=== PATIENT | female | born 1965 | race Caucasian/White ===

== ENCOUNTER → 2018-01-23 10:53 | Outpatient (CLI) | payer BC, SELFPAY ==
--- NOTE | 2018-01-23 09:00 | TOBX_PTH ---
PATIENT: BALDO PORRAS [facility]: [facility] U#:[id number] AGE/SX: 59/F ROOM: RE01/23/[address]: Dr. Moody Winters DDS : 1965 BED: DIS: SPEC #: [id number] RECD: 01/23/18 10:31 STATUS: ANASTACIO HIREN #: [id number] ELLA: 01/23/18 09:[address]: Moody Winters DEPT: SURGICAL PATHOLOGY RECD BY: Gunner Awad Tissues: Tongue, NOS Procedures: Special Stain Group I Surgery Specimen Level IV GMS Stain (control) HEADER OPERATION: Tongue biopsy PRE-OP DIAGNOSIS: Several month history for painful growth, doubtful for malignancy TISSUE SUBMITTED: Dorsal tongue biopsy MICROSCOPIC DIAGNOSIS Dorsal tongue, biopsy: Squamous mucosa with verrucous changes and epithelial hyperplasia, suggestive of verruca vulgaris. Superficial bacterial colonization. Special stain for fungi is negative for organisms; matched control is appropriate. Negative for malignancy. SJ:anahi 01/24/18 MICROSCOPIC DESCRIPTION Slides are reviewed. GROSS DESCRIPTION Received in fixative is one container labeled with the patient's name and designated tongue. The specimen consists of a piece of mccurdy-white soft tissue measuring 0.3 x 0.3 x 0.1 cm. The specimen is totally submitted in one cassette. / MIKE:anahi 01/23/18 TC:5 CPT: 28136, 96148
== END ==
PROVIDERS: Visit Provider Dentist Oral and Maxillofacial Surgery
DX: K14.9 Disease of tongue, unspecified (principal)
CPT/HCPCS: 88305; 88312

== ENCOUNTER 2023-12-25 17:00 | Outpatient (RCR) | payer OTHER, SELFPAY ==
--- NOTE | 2023-11-17 10:48 | HP.OTEVAL_ITS ---
Patient's Visit Information Visit Information Visit Information: BALDO PORRAS is a 57 year old F, referred to Occupational Therapy by Dr. Lizandro Moon MD, with a diagnosis of right lateral epicondylitis/ radial tunnel syndrome. Date of Evaluation: 11/15/23 Occupational Therapist: Tiarra Bashir, SONA/Kathleen, CHT Subjective Subjective: This 57 year old female was seen for OT Eval with dx of right lateral epi, and radial tunnel. pt states pain has come and gone for about 8 weeks or longer- states really was painful when she went to swing a golf club- pt works at [employer] and has made some adj. to decrease stress on elbow positions. Pt is on medication and has decreased her pain by 50% still has pain with IADLs and ADLs. Pain right elbow pain: Current Pain Intensity: 3 Pain Intensity Range: 4 ROM ROM Comments: pt demo with full ROM Strength Drug Safety Specialist: right 45 with pain 45# Lateral Pinch: right 12# left 12# Tripod Pinch: right 12# left 12# Strength Comments: right with elbow straight 20# with pain left 55# Sensation Sensation Comments: denies Special Tests Lat Epiconylitis - as named: positive right Quick DASH-Disab of Arm,Shoulder& Hand Quick DASH Score: 37.5000 Goals Goal:: pt will demo a increase in right pasteurizer strength by 15# to increase pts ind. with ADLs by d.c Goal:: pt will report pain no greater than 2/10 with use of right UE with ADLs and sports tasks by d/c Goal:: pt will demo understanding of using lateral epi precautions, and ergo lift to limit stress on tendon/lig. by d.c Goal:: pt will demo understanding of using brace 80% if the time to decrease stress on extensor mech. to allow for healing by end of 2nd session. Rehabilitation General Assessment: pt demo with symptoms of positive right lateral epi. limiting pts IND with ADls, IADls and work tasks. pt would benefit from skilled OT services 1-2x week for 4 weeks to return pt to her PLOF. Today therapist ed. pt on lateral epi dx. bracing ( wrist cock-up and counterforce tennis elbow brace), protective phyllis. to avoid reaching with palm down for items and initiation of stretch and home program of friction massage to increase circulation and healing. pt demo understanding and agrees to POC. Rehabilitation Potential: Excellent Anticipated Interventions Anticipated Interventions: Strengthening, Triggerpoint Release, Modalities, Orthoses, Joint Protection/Energy Conservation, Ergonomic Education, Education re assistive Equipment, Education re Diagnosis and Home Program Visit Plan Frequency: 1-2x /Week Duration: 4-6 Weeks General Plan: wrist brace use with heavy work and sleeping tennis elbow brace with work and heavy work tasks/sports TEXT: Thank you for the opportunity to evaluate your patient. For Medicare and Medicare HMO plans, please review the plan of care and approve it. It will need to be FAXED BACK to us at [phone] for Medicare purposes. Please let me know if there are questions or concerns regarding this plan of care. Physician Signature: Date:
--- NOTE | 2023-12-25 18:00 | HP.OTDCSUM_ITS ---
Discharge Summary D/C Summary: It has been my pleasure to treat BALDO PORRAS under orders from Dr. Lizandro Moon MD, for the diagnosis of right lateral epicondylitis/ radial tunnel syndrome for a total of 5 visit(s). Please see the following information for a summary of their discharge status. Overall Improvement % Improvement: 70 Goals Patient Goals: Decrease Pain, Use Hand/Wrist/Arm Normally Again and Be More Independent in ADLS Goal:: pt will demo a increase in right housing and residence life director strength by 15# to increase pts ind. with ADLs by d.c progressing Goal:: pt will report pain no greater than 2/10 with use of right UE with ADLs and sports tasks by d/c goal met Goal:: pt will demo understanding of using lateral epi precautions, and ergo lift to limit stress on tendon/lig. by d.c - goal met Goal:: pt will demo understanding of using brace 80% if the time to decrease stress on extensor mech. to allow for healing by end of 2nd session. goal met Plan Plan: continue per POC with HEP, suggesting to order red flex bar to perform Marco Twists and soft tissue work at home. Continue with soft tissue and heat with eccentric exercises. D/C Information Discharge Comments: Pt was seen for right lateral epicondylitis. pt has made good gains in understanding dx and protrective phyllis. to prevent further injury. pts pain has decreased. pt is ready to cont. with HEP of eccentric ex. isometric shoulder stabilization and along with change in exercise routine. Pt has met OT goals and is d.c at this time with HEP . pt agrees to D.C. d/c sentence: If there are questions or concerns regarding this patient's occupational therapy, please fell free to call me at [phone]. Thank you for the referral of this patient. Sincerely, Tiarra Bashir, OTR/L, CHT
== END 2023-12-25 19:00 | disposition home or self-care (01) ==
LOC: OT 17:00
PROVIDERS: PCP Nurse Practitioner Primary Care; Referring Provider Orthopaedic Surgery; Visit Provider Orthopaedic Surgery
DX: G56.31 Lesion of radial nerve, right upper limb (principal); M77.11 Lateral epicondylitis, right elbow
CPT/HCPCS: 97035; 97110; 97140; 97166; 97530

== ENCOUNTER 2024-11-11 08:40 | Emergency (ER) | payer OTHER, SELFPAY ==
[2024-11-11 08:40] VITALS: BP 182/102; PULSE 64; RESP 14; TEMP 36.6; O2SAT 99; BMI 21.8
--- NOTE | 2024-11-11 08:49 | EDS_ITS ---
HPI History of Present Illness Chief Complaint: Headache Narrative Narrative: Chief complaint and HPI: Migraine. 58-year-old female with past medical history of migraines presents for evaluation of migraine. Patient follows with Dr. Faustin which is her neurologist. She recently had her abortive medication changed to a triptan. Patient states she woke up with a migraine this morning in which she took her triptan. However she states that the triptan did not improve the migraine which is why she presents. Patient states this feels like her typical migraines. Endorses nausea and photophobia. Denies any weakness or neurological deficit. Denies any trauma, fever, chills. Review of systems: See HPI Medications: As listed on the chart Allergies: As listed on the chart PFSH: Per chart Vital signs: As listed on the chart. Reviewed. Physical exam: Gen: A&O x3, NAD but lying in a dark room Head: Normocephalic, atraumatic Eyes: No sclera icterus, conjunctiva clear, PERRL, EOMI ENT: Moist mucous membranes Neck: Trachea midline, No JVD, full range of motion CV: RRR, no murmurs Resp: Lungs CTA BL, no w/r/c Musc: Full ROM, no deformity Skin: Warm, dry Neuro: Alert, oriented, grossly intact, sensation intact Psych: Cooperative, appropriate mood and affect [facility] Home Medications ?Medication ?Instructions ?Recorded ?Last Taken ?Type escitalopram oxalate 20 mg tablet 20 mg PO DAILY 04/28 Unknown History (Lexapro) rizatriptan 10 mg tablet 10 mg PO .X1 PRN 04/28/13 Un known History Allergy/AdvReac Type Severity Reaction Status Date / Time No Known Allergies Allergy Verified 11/11/24 08:41 Social History Smoking Status: Never smoker EXAM Physical Exam Const Vital Signs: 11/11/24 08:40 11/11/24 09:44 Temperature 98 F Temperature Source Temporal Pulse Rate 64 Respiratory Rate 14 Blood Pressure 182/102 H 151/87 H Blood Pressure Mean 128 108 Pulse Ox 99 Oxygen Delivery Method Room Air MDM MDM MDM Narrative Medical decision making narrative: 58-year-old female with past medical history of migraines presents for evaluation of migraine. Associated symptom with headache is nausea and photophobia. Patient states this feels like her typical migraine. Differential diagnosis includes but is not limited to migraine, tension headache. Not consistent with SAH. Do not think any imaging or laboratory workup is needed at this time. Patient's symptoms will be treated with migraine cocktail and we will reevaluate. On reevaluation, patient's headache has improved. Originally was a 8/10 now a 4 /10. Patient has not had any emesis here in the emergency department. Her blood pressure is improved with her pain. Patient stable to discharge home. She was educated to continue her triptans as prescribed. Will give Zofran as needed for nausea and vomiting. Return back to the ED if symptoms change or worsen. Impression: 1. Migraine headache 2. History of migraines Discharge Plan Triage Chief Complaint: Headache ED Provider: Nate West Dx/Rx/DC Orders Prescriptions: No Action rizatriptan 10 MG tablet 10 mg PO .X1 PRN escitalopram oxalate [Lexapro] 20 MG tablet 20 mg PO DAILY Primary Care Provider: Cammie Garcia NP Referrals: Cammie Garcia NP, BANK RECONCILIATOR-C [Primary Care Provider] - Print Language: Taiwanese
[2024-11-11] MEDS: 0.9% Normal Saline (1000mL) 1,000 ML 1000 ML IV (08:55)
[2024-11-11] MEDS: DiphenhydrAMINE 50 MG/ML Syringe 25 MG IV (08:55)
[2024-11-11] MEDS: Ketorolac 30 MG/ML Syringe IV (08:56)
[2024-11-11] MEDS: Metoclopramide 10 MG/2 ML Vial IV (09:01)
[2024-11-11 09:44] VITALS: BP 151/87
[2024-11-11 10:19] VITALS: BP 150/73; PULSE 71; RESP 14; TEMP 36.6; O2SAT 99
== END 2024-11-11 10:20 | disposition home or self-care (01) ==
PROVIDERS: Emergency Provider Surgery; PCP Nurse Practitioner Primary Care; Visit Provider Surgery
DX: G43.909 Migraine, unspecified, not intractable, without status migrainosus (principal)
CPT/HCPCS: 96361; 96374; 96375; 99282; A4216

== ENCOUNTER 2024-11-11 21:17 | Emergency (ER) | payer OTHER, SELFPAY ==
[2024-11-11 21:18] VITALS: BP 138/102; PULSE 90; RESP 20; TEMP 36.2; O2SAT 95; BMI 21.4
--- NOTE | 2024-11-11 21:31 | EDS_ITS ---
HPI History of Present Illness Chief Complaint: Headache Informant: patient Onset/Context/Timing Onset: Today Context: Onset (Woke up with migraine headache) Timing: Continuous Quality -Headache: Positive for Similar Prior Headaches and Tightness Location: Generalized Worsened by: Bright lights Relieved by: Nothing Associated Symptoms/Injury Associated Symptoms: Positive for Nausea and Vomiting; Negative for Fever, Sore Throat, Sinus Pressure, Numbness, Tingling, Preceding Aura, Visual Changes, Blurred Vision, Photophobia or Visual Loss Narrative Narrative: Patient presents with migraine headache that began today. Patient woke up with a migraine headache this morning. Patient was seen here earlier this morning and was given Reglan, Benadryl and Toradol. Patient reported that her headache had improved after this and went home. Patient was given a prescription for Zofran. Patient states she has been having persistent nausea and vomiting. Patient has been unable to keep her normal migraine medications down. Patient denies any fevers or chills. Patient admits to some photophobia. Patient denies any visual changes or scotoma. Patient denies any preceding aura. Patient denies any paresthesias or weakness. PFSH PFS Medical History (Updated 11/11/24 @ 22:[address] Carlos Purcell DO) Migraine Home Medications ?Medication ?Instructions ?Recorded ?Last Taken ?Type escitalopram oxalate 20 mg tablet 20 mg PO DAILY 04/28 Unknown History (Lexapro) rizatriptan 10 mg tablet 10 mg PO .X1 PRN 04/28/13 Un known History ondansetron 4 mg disintegrating 4 mg PO Q8H PRN PRN Na usea #10 tabs 11/11/24 Unknown Rx tablet Allergy/AdvReac Type Severity Reaction Status Date / Time No Known Allergies Allergy Verified 11/11/24 21:21 Family History (Updated 11/11/24 @ 21:44 by Linda Ferreira) Father Parkinsons disease Hypertension Mother Hypertension Rheumatoid arthritis Surgical History (Updated 11/11/24 @ 21:[address] Carlos Purcell DO) Hx of section Social History Smoking Status: Never smoker ROS ROS ED Constitutional Constitutional ED: Denies chills or fever(s) Eyes Eyes: Denies blurry vision or change in vision ENT ENT ED: Denies rhinorrhea or sore throat Cardiovascular Cardiovascular: Denies chest pain or palpitations Respiratory/Chest Respiratory/Chest: Denies cough or dyspnea Gastrointestinal Gastrointestinal: Reports nausea and vomiting Genitourinary Genitourinary ED: Denies dysuria or hematuria Musculoskeletal Musculoskeletal: Denies back pain or neck pain Integumentary Denies abscess or rash Neurologic Neurologic: Reports headache(s); Denies weakness Allergic/Immunologic Allergic/Immunologic ED: Denies mouth swelling or urticaria EXAM Physical Exam Const Vital Signs: 11/11/24 21:18 Temperature 97.1 F L Temperature Source Temporal Pulse Rate 90 Respiratory Rate 20 H Blood Pressure 138/102 H Blood Pressure Mean 114 Pulse Ox 95 Oxygen Delivery Method Room Air Positive well nourished and well developed Constitutional Narrative: BMI is 21.5. General Appearance ED: well developed and NAD HEENT Reports normocephalic and moist mucous membranes atraumatic Neck supple, no meningeal signs and no JVD Resp normal respiratory effort and clear to auscultation bilaterally Cardio regular rate and regular rhythm GI non-tender and non-distended Palpation: soft Neuro oriented x3, CN's II-XII intact bilaterally and no sensory deficits noted Sebastian Coma Scale: document GCS findings Spontaneous Obeys Commands Oriented 15 Sensorium / Orientation: awake and alert Speech: speech normal Motor Exam: strength 5/5 throughout Psych mental status grossly normal MDM MDM MDM Narrative Medical decision making narrative: Patient states this feels similar to her prior migraine headaches. I do not feel any imaging is necessary at this time. Patient was given IV fluids, Reglan, Benadryl, Toradol, and Imitrex. Patient states the Imitrex is what has worked for her in the past. History & Record Review Additional record(s) reviewed:: Prior ED visit Treatment and Re-Evaluation Narrative: Patient was feeling better on reevaluation. Patient states her headache was almost completely resolved. Patient wants to go home. Patient was instructed to rest in a dark quiet room. Patient was instructed to follow-up with her primary care physician in 5 to 7 days. Patient was instructed to continue the Zofran and rizatriptan as needed. Patient understood and was agreeable with the plan. All questions were answered. Discharge Plan Triage Chief Complaint: Headache ED Provider: Carlos Purcell Dx/Rx/DC Orders Clinical Impression: Migraine, Elevated blood pressure reading without diagnosis of hypertension Instructions: ED, Migraine (Classical) Prescriptions: No Action rizatriptan 10 MG tablet 10 mg PO .X1 PRN escitalopram oxalate [Lexapro] 20 MG tablet 20 mg PO DAILY ondansetron 4 mg tablet,disintegrating 4 mg PO Q8H PRN PRN (Reason: Nausea) Qty: 10 0RF Primary Care Provider: Cammie Garcia NP Referrals: Cammie Garcia NP, ENGINEER FISHING VESSEL-C [Primary Care Provider] - 5-7 Days Print Language: Armenian Disposition Disposition: Home, Self Care
[2024-11-11] MEDS: 0.9% Normal Saline (1000mL) 1,000 ML 999 ML IV (21:55)
[2024-11-11] MEDS: DiphenhydrAMINE 50 MG/ML Syringe 25 MG IV (21:56)
[2024-11-11] MEDS: Metoclopramide 10 MG/2 ML Vial IV (21:57)
[2024-11-11] MEDS: Ketorolac 15 MG/ML Vial IV (21:59)
[2024-11-11] MEDS: SUMAtriptan 6 MG/0.5 ML Vial SC (22:00)
[2024-11-11 22:48] VITALS: BP 124/68; PULSE 89; RESP 14; TEMP 37.2; O2SAT 100
== END 2024-11-11 22:49 | disposition home or self-care (01) ==
PROVIDERS: Emergency Provider Emergency Medicine; PCP Nurse Practitioner Primary Care; Visit Provider Emergency Medicine
DX: G43.909 Migraine, unspecified, not intractable, without status migrainosus (principal); R03.0 Elevated blood-pressure reading, without diagnosis of hypertension
CPT/HCPCS: 96361; 96372; 96374; 96375; 99284; A4216; J3030